=== PATIENT | male | born 1995 | race Hispanic/Latino ===

== ENCOUNTER 2020-12-17 17:38 | Emergency (ER) | payer OTHER ==
[~2020-12-17] VITALS: Ht 165.1 cm; Wt 60.0 kg
[~2020-12-17 17:38] MED LIST: AMOX/K CLAV500 MG PO; AMOXICILLIN500 MG PO; AMOXICILLIN875 MG PO; AUGMENTIN500TAB PO; AUGMENTIN875TAB PO; BENTYL10 MG PO; CIPROFLOXACN500 MG PO; CLARITIN10 M1 PO; FLONASE 60 DOS0.05 %; FLONASE NASAL50 MCG; FLORASTOR250 M1 PO; GNP LORATAD5 MG/5 M1 PO; LORATADINE10 M1 PO; MOTRIN400 MG PO; NAPROSYN500 MG PO; NASONEX50 MCG/AC; NASONEX50 MCG/AC NAB; OFLOXACIN0.3 % OU; TESSALON PER100 MG PO; ULTRAM50 M1 PO; UNKNOWN ANTIBIOTIC; VIGAMOX OU; ZOFRAN ODT4 MG PO; ZOFRAN ODT8 MG PO; ZPAK PO; [UNRECOGNIZED DRUG - REMARK]
[2020-12-17 20:15] VITALS: BP 116/71
== END 2020-12-17 20:16 | disposition home or self-care (01) | DRG 563 ==
LOC: ED 17:38
DX: S46.911A Strain of unspecified muscle, fascia and tendon at shoulder and upper arm level, right arm, initial encounter (principal); V89.2XXA Person injured in unspecified motor-vehicle accident, traffic, initial encounter

== ENCOUNTER 2021-01-11 12:31 | Emergency (ER) | payer OTHER ==
[~2021-01-11] VITALS: Ht 165.1 cm; Wt 56.8 kg
[2021-01-11 14:08] VITALS: BP 117/71
== END 2021-01-11 14:08 | disposition home or self-care (01) | DRG 563 ==
LOC: ED 12:31
DX: S39.012A Strain of muscle, fascia and tendon of lower back, initial encounter (principal); V43.52XA Car driver injured in collision with other type car in traffic accident, initial encounter

== ENCOUNTER 2021-04-24 09:05 | Emergency (ER) | payer SELFPAY ==
[~2021-04-24] VITALS: Ht 165.1 cm; Wt 56.8 kg
[2021-04-24 11:14] VITALS: BP 116/79
== END 2021-04-24 11:15 | disposition home or self-care (01) | DRG 556 ==
LOC: ED 09:05
DX: M79.662 Pain in left lower leg (principal); W31.89XA Contact with other specified machinery, initial encounter; Y92.89 Other specified places as the place of occurrence of the external cause; Y99.0 Civilian activity done for income or pay